=== PATIENT | female | born 2000 | race Caucasian/White ===

== ENCOUNTER 2023-10-25 23:40 | Emergency (ER) | payer OTHER, MEDICAID ==
[~2023-10-25] VITALS: Ht 157.5 cm; Wt 73.0 kg
[2023-10-26 00:13] VITALS: BP 118/77; PULSE 81; RESP 16; O2SAT 97
[2023-10-26] MEDS ORDERED: ACETAMINOPHEN 325MG TABLET PO ONE (00:15)
[2023-10-26 00:42] VITALS: TEMP 98.2
[2023-10-26] MEDS: ACETAMINOPHEN 325MG TABLET PO NR (00:42)
[2023-10-26] MEDS ORDERED: HYDR-4001 MT (01:26)
[2023-10-26] MEDS ORDERED: IBUP-2029 MT (01:26)
== END 2023-10-26 02:16 | disposition home or self-care (01) ==
LOC: ER 23:53
DX: S52.551A Other extraarticular fracture of lower end of right radius, initial encounter for closed fracture (principal); S10.91XA Abrasion of unspecified part of neck, initial encounter; S80.12XA Contusion of left lower leg, initial encounter; R07.89 Other chest pain; V49.49XA Driver injured in collision with other motor vehicles in traffic accident, initial encounter; Y93.89 Activity, other specified; Y92.89 Other specified places as the place of occurrence of the external cause; Y99.8 Other external cause status
CPT/HCPCS: 71045; 73110; 73130; 73590; 81025; 93005; 99284